=== PATIENT | male | born 1985 | race Caucasian/White ===

== ENCOUNTER 2018-07-01 08:43 | Emergency (ER) | payer MEDICAID ==
[~2018-07-01] VITALS: Ht 170.2 cm; Wt 90.7 kg
[2018-07-01 08:49] VITALS: BP 147/73
--- NOTE | 2018-07-01 08:56 | NUR ---
PT AMBULATES TO BED 3
[2018-07-01] MEDS ORDERED: LIDOCAINE/EPI 1% 1:100000 20 ML VIAL INJ ONE (09:00)
--- NOTE | 2018-07-01 09:00 | NUR ---
33Y/M BIB BROTHER WITH C/O 3 INCH LACERATION TO LEFT WRIST, BLEEDING CONTROLLED, PT STATED HE FELL AND CUT HIS WRIST BY A PIECE OF WOOD 40 MINS AGO. PT IS AAOX4, VSS AT THIS TIME, BED DOWN, LOW LOCKED AND ER MD AWARE AND NOTIFIED OF PT STATUS. HX: NONE
--- NOTE | 2018-07-01 09:02 | NUR ---
Patient being evaluated by physician at bedside.
--- NOTE | 2018-07-01 09:07 | NUR ---
XRAY AT BEDSIDE
[2018-07-01 09:47] VITALS: BP 143/71
--- NOTE | 2018-07-01 09:47 | NUR ---
Patient discharged with v/s stable. Written and verbal after care instructions given and explained. Patient alert, oriented and verbalized understanding of instructions. Ambulatory with steady gait. All questions addressed prior to discharge. ID band removed. Patient advised to follow up with PMD. Rx of naprosyn, keflex given. Patient educated on indication of medication including possible reaction and side effects. Opportunity to ask questions provided and answered.
[2018-07-01] MEDS ORDERED: NEOMYCIN/POLYMYXIN/BACITRACIN 0.9 GM/1 PKT TP ONE (09:50)
== END 2018-07-01 09:47 | disposition home or self-care (01) ==
LOC: MED 08:43
DX: S61.512A Laceration without foreign body of left wrist, initial encounter (principal); W26.8XXA Contact with other sharp object(s), not elsewhere classified, initial encounter; Y93.89 Activity, other specified; Y92.098 Other place in other non-institutional residence as the place of occurrence of the external cause; Y99.8 Other external cause status
CPT/HCPCS: 12002; 73110; 90471; 90715; 99283; J2001; Q0092